=== PATIENT | female | born 1940 | race Two or more races ===

== ENCOUNTER 2016-09-20 15:19 | Emergency (ER) | payer MEDICARE ==
[2016-09-20 16:51] LABS: Albumin 3.4 g/dL (3.4-5.0); Calcium 9.5 mg/dL (8.5-10.1); Magnesium 2.2 mg/dL (1.6-2.6); Potassium 3.9 mmol/L (3.5-5.1)
[2016-09-20 16:54] LABS: Bilirubin, Total 0.6 mg/dL (0.2-1.0); Total Protein 7.2 g/dL (6.4-8.2)
[2016-09-20 18:02] LABS: Basophils # (auto) 0 uL; Basophils % (auto) 0.4 % (0.0-2.0); Eosinophils # (auto) 0.1 uL; Eosinophils % (auto) 1.1 % (0.0-7.0); Hematocrit 40.2 % (36.0-46.0); Hemoglobin 12.8 g/dL (12.2-16.2); Lymphocytes # (auto) 2.1 uL; Lymphocytes % (auto) 40.4 % (10.0-50.0); Mean Corpuscular Hemoglobin 31.5 pg (28.0-32.0); Mean Corpuscular Hgb Conc. 31.8 g/dL (32.0-36.0); Mean Corpuscular Volume 98.9 fL (80.0-100.0); Mean Platelet Volume 8.9 fL (7.4-10.4); Monocytes # (auto) 0.4 uL; Neutrophils # (auto) 2.6 uL; Neutrophils % (auto) 50.1 % (37.0-80.0); Platelet Count (auto) 262 10^3/uL (140-450); Red Cell Distribution Width 15.6 % (11.6-16.0); White Blood Cell 5.2 10^3/uL (4.4-10.8)
[2016-09-20] MEDS: LORazepam 2MG/ML-1ML VIAL IV ONE (18:02)
[2016-09-20] MEDS: cloNIDine HCL 0.1 MG TAB PO ONE (18:02)
[2016-09-20 18:39] LABS: Urine Bilirubin Negative (Negative); Urine Blood Negative /uL (Negative); Urine Color Yellow (Yellow); Urine Glucose Normal (Normal); Urine Ketone Negative (Negative); Urine Mucus FEW (None Seen); Urine Nitrite Negative (Negative); Urine RBC 1 /hpf (0 - 4); Urine Squamous Epithelial Cell FEW /hpf (<5); Urine Urobilinogen Normal (Negative); Urine pH 5.5 (5.0-8.0)
[2016-09-20 19:54] VITALS: BP 129/64
== END 2016-09-20 20:24 | disposition home or self-care (01) ==
LOC: ER 15:25
DX: R07.89 Other chest pain (principal); I10 Essential (primary) hypertension; E78.5 Hyperlipidemia, unspecified; Z88.0 Allergy status to penicillin; Z88.6 Allergy status to analgesic agent; Z88.8 Allergy status to other drugs, medicaments and biological substances
CPT/HCPCS: 36415; 71020; 80053; 81001; 83735; 84484; 85025; 93005; 94761; 96374; 99285; J2060

== ENCOUNTER 2017-02-14 12:56 | Inpatient (IN) | payer MEDICARE, OTHER ==
[~2017-02-14] VITALS: Ht 157.5 cm; Wt 68.3 kg
[2017-02-14 14:24] LABS: Basophils # (auto) 0 uL; Basophils % (auto) 0.3 % (0.0-2.0); CONDITION Y; Eosinophils # (auto) 0.1 uL; Eosinophils % (auto) 1.4 % (0.0-7.0); Hematocrit 40.8 % (36.0-46.0); Hemoglobin 13.8 g/dL (12.2-16.2); Lymphocytes # (auto) 1.8 uL; Lymphocytes % (auto) 32.2 % (10.0-50.0); Mean Corpuscular Hemoglobin 32.6 pg (28.0-32.0); Mean Corpuscular Hgb Conc. 33.8 g/dL (32.0-36.0); Mean Corpuscular Volume 96.4 fL (80.0-100.0); Mean Platelet Volume 8.3 fL (7.4-10.4); Monocytes # (auto) 0.5 uL; Monocytes % (auto) 8.9 % (0.0-12.0); Neutrophils # (auto) 3.2 uL; Neutrophils % (auto) 57.2 % (37.0-80.0); Platelet Count (auto) 261 10^3/uL (140-450); Red Cell Distribution Width 16.2 % (11.6-16.0); White Blood Cell 5.6 10^3/uL (4.4-10.8)
[2017-02-14 14:34] LABS: INR 0.98 (0.9-1.15); Partial Thromboplastin Time 27.9 sec (22.64-33.71); Prothrombin Time 10.7 sec (9.37-12.3)
[2017-02-14 14:41] LABS: Albumin 3.6 g/dL (3.4-5.0); Alkaline Phosphatase 122 U/L (45-117); Anion Gap 7 (5-15); Aspartate Aminotransferase 19 U/L (15-37); BUN/Creatinine Ratio 25.8; Bilirubin, Total 1.1 mg/dL (0.2-1.0); Blood Urea Nitrogen 17 mg/dL (7-18); Calcium 9.3 mg/dL (8.5-10.1); Carbon Dioxide 27 mmol/L (21-32); Chloride 106 mmol/L (98-107); GFR African American 113 mL/min; GFR Non-African American 93 mL/min; Glucose 95 mg/dL (74-106); Potassium 3.7 mmol/L (3.5-5.1); Sodium 140 mmol/L (136-145); Total Protein 7.8 g/dL (6.4-8.2)
[2017-02-15 00:55] LABS: Amylase 102 U/L (25-115)
[2017-02-15 01:10] LABS: Temperature: 22.7 C (20.0-25.0)
[2017-02-15] MEDS ORDERED: ONDANSETRON HCL 4 MG/2 ML VIAL IV ONE (02:00)
[2017-02-15] MEDS ORDERED: LACTULOSE 20Gm/30ML SOLN PO ONE (02:00)
[2017-02-15] MEDS ORDERED: MORPHINE SULF INJ 2 MG/ML SYRINGE 1ML IV ONE (02:00)
[2017-02-15 02:34] LABS: Urine RBC None Seen /hpf (0 - 4); Urine Squamous Epithelial Cell None Seen /hpf (<5)
[2017-02-15 04:14] LABS: Urine Bilirubin Negative (Negative); Urine Blood Negative /uL (Negative); Urine Color Yellow (Yellow); Urine Glucose Normal (Normal); Urine Ketone Negative (Negative); Urine Urobilinogen Normal (Negative); Urine pH 5.5 (5.0-8.0)
[2017-02-15 04:15] LABS: Urine Nitrite Negative (Negative)
[2017-02-15] MEDS ORDERED: PANTOPRAZOLE SODIUM 40 MG/10 ML VIAL IV ONE (05:15)
[2017-02-15] MEDS ORDERED: ONDANSETRON HCL 4 MG/2 ML VIAL IV PRN (05:15)
[2017-02-15] MEDS ORDERED: TEMAZEPAM 15 MG CAP PO PRN (05:15)
[2017-02-15] MEDS ORDERED: MORPHINE SULF INJ 2 MG/ML SYRINGE 1ML IV PRN (05:15)
[2017-02-15] MEDS: hydrALAZINE HCL 25 MG TAB PO SCH ×3 (05:48→22:38)
[2017-02-15] MEDS: metroNIDAZOLE 500MG/100ML 100 ML IV SCH ×3 (05:48→22:37)
[2017-02-15] MEDS ORDERED: PANTOPRAZOLE SODIUM 40 MG/10 ML VIAL IV SCH (10:00)
[2017-02-15] MEDS: ENOXAPARIN SOD 40 MG/0.4 ML SYRINGE SC SCH (10:22)
[2017-02-15] MEDS: DOCUSATE SOD 100 MG CAP PO SCH ×2 (10:42→22:40)
[2017-02-15] MEDS: LOSARTAN POTASSIUM 50 MG TAB PO SCH (10:42)
[2017-02-15] MEDS: LEVOFLOXACIN 500MG 100 ML IV SCH (10:42)
[2017-02-15 20:00] VITALS: BP 137/73
[2017-02-15 22:00] VITALS: BP 137/73
[2017-02-15] MEDS ORDERED: ATORVASTATIN 20 MG TAB PO SCH (22:00)
[2017-02-15] MEDS: PANTOPRAZOLE 40 MG TAB PO SCH (22:37)
[2017-02-16 05:00] VITALS: BP 122/55
[2017-02-16] MEDS: metroNIDAZOLE 500MG/100ML 100 ML IV SCH ×2 (06:00→15:15)
[2017-02-16 07:37] LABS: Basophils # (auto) 0 uL; Basophils % (auto) 0.4 % (0.0-2.0); CONDITION Y; Eosinophils # (auto) 0.1 uL; Eosinophils % (auto) 1.5 % (0.0-7.0); Hematocrit 36.1 % (36.0-46.0); Hemoglobin 12.1 g/dL (12.2-16.2); Lymphocytes # (auto) 1.6 uL; Lymphocytes % (auto) 31.6 % (10.0-50.0); Mean Corpuscular Hemoglobin 32.4 pg (28.0-32.0); Mean Corpuscular Hgb Conc. 33.5 g/dL (32.0-36.0); Mean Corpuscular Volume 96.7 fL (80.0-100.0); Monocytes # (auto) 0.5 uL; Neutrophils # (auto) 2.9 uL; Neutrophils % (auto) 57.5 % (37.0-80.0); Platelet Count (auto) 234 10^3/uL (140-450); Red Cell Distribution Width 16.1 % (11.6-16.0)
[2017-02-16 07:51] LABS: BUN/Creatinine Ratio 12.9; Calcium 8.8 mg/dL (8.5-10.1); Potassium 3.7 mmol/L (3.5-5.1); Total Protein 6.2 g/dL (6.4-8.2)
[2017-02-16] MEDS ORDERED: SODIUM CHLORIDE LOCK 10 ML ONE (08:06)
[2017-02-16] MEDS ORDERED: diphenhdrAMINE HCL 50 MG/1 ML VL ONE (08:07)
[2017-02-16] MEDS ORDERED: fentaNYL CITRATE 100 MCG/2 ML VL ONE (08:07)
[2017-02-16] MEDS ORDERED: LIDOCAINE VISCOUS 2% 15ML UD ONE (08:07)
[2017-02-16] MEDS ORDERED: MIDAZOLAM HCL 5 MG/ML-1ML VIAL ONE (08:07)
[2017-02-16 09:00] VITALS: BP 134/70
[2017-02-16] MEDS: hydrALAZINE HCL 25 MG TAB PO SCH ×2 (09:25→15:18)
[2017-02-16] MEDS: ENOXAPARIN SOD 40 MG/0.4 ML SYRINGE SC SCH (10:00)
[2017-02-16] MEDS: DOCUSATE SOD 100 MG CAP PO SCH (10:00)
[2017-02-16] MEDS: PANTOPRAZOLE 40 MG TAB PO SCH (10:00)
[2017-02-16] MEDS: LOSARTAN POTASSIUM 50 MG TAB PO SCH (10:00)
[2017-02-16] MEDS: LEVOFLOXACIN 500MG 100 ML IV SCH (10:00)
[2017-02-16 13:00] VITALS: BP 141/76
[2017-02-16] MEDS ORDERED: LEVO500T21 PO (15:39)
[2017-02-16] MEDS ORDERED: PANT40TA2 PO (15:39)
[2017-02-16] MEDS ORDERED: METR500T PO (15:39)
[2017-02-16 16:46] VITALS: BP 141/76
== END 2017-02-16 18:03 | disposition home or self-care (01) | DRG 392 ==
LOC: ER 12:56 → OVERFLOW 12:57 → EAST 02-15 16:46
PROVIDERS: ADMIT Nurse Practitioner; ATTEND Nurse Practitioner Acute Care
PROC: 0DB68ZX Excision of Stomach, Via Natural or Artificial Opening Endoscopic, Diagnostic (ICD-10-PCS; principal; 2017-02-16 10:00)
DX: K57.32 Diverticulitis of large intestine without perforation or abscess without bleeding (principal); N39.0 Urinary tract infection, site not specified; J98.11 Atelectasis; I11.9 Hypertensive heart disease without heart failure; E78.5 Hyperlipidemia, unspecified; K29.70 Gastritis, unspecified, without bleeding; K59.00 Constipation, unspecified; E78.00 Pure hypercholesterolemia, unspecified; Z88.6 Allergy status to analgesic agent; Z88.5 Allergy status to narcotic agent; Z88.0 Allergy status to penicillin; Z90.710 Acquired absence of both cervix and uterus
CPT/HCPCS: 36415; 71010; 74176; 80053; 81001; 82150; 83690; 83880; 84443; 84484; 85025; 85610; 85730; 93005; 94761; 96374; 96375; C9113; J1956; J2250; J2405; J3490

== ENCOUNTER 2017-12-29 18:59 | Inpatient (IN) | payer MEDICARE, OTHER ==
[~2017-12-29] VITALS: Ht 152.4 cm; Wt 81.5 kg
[~2017-12-29 18:59] MED LIST: LEVO500T21 PO; METR500T PO; PANT40TA2 PO
[2017-12-29] MEDS ORDERED: SODIUM CHLORIDE 0.9% 1,000 ML IV ONE (19:19)
[2017-12-29 19:42] LABS: Basophils # (auto) 0 uL; Basophils % (auto) 0.2 % (0.0-2.0); Eosinophils # (auto) 0.1 uL; Eosinophils % (auto) 0.9 % (0.0-7.0); Hematocrit 43.7 % (36.0-46.0); Hemoglobin 14.8 g/dL (12.2-16.2); Lymphocytes # (auto) 1.9 uL; Lymphocytes % (auto) 24.7 % (10.0-50.0); Mean Corpuscular Hemoglobin 33.3 pg (28.0-32.0); Mean Corpuscular Hgb Conc. 33.8 g/dL (32.0-36.0); Mean Corpuscular Volume 98.4 fL (80.0-100.0); Monocytes # (auto) 0.6 uL; Monocytes % (auto) 7.8 % (0.0-12.0); Neutrophils # (auto) 5.2 uL; Neutrophils % (auto) 66.4 % (37.0-80.0); Nucleated Red Blood Cells % 0.1 %; Platelet Count (auto) 245 10^3/uL (140-450); Red Blood Cells 4.44 10^6/uL (4.0-5.20); Red Cell Distribution Width 15.1 % (11.8-14.3); White Blood Cell 7.8 10^3/uL (4.4-10.8)
[2017-12-29 19:45] LABS: Urine Bacteria NONE SEEN /hpf (None Seen); Urine Blood Negative /uL (Negative); Urine Specific Gravity 1.005 (1.001-1.035); Urine WBC 10 /hpf (0 - 5)
[2017-12-29 20:07] LABS: INR 0.96 (0.9-1.15); Partial Thromboplastin Time 28.8 sec (23.78-33.04); Prothrombin Time 10.3 sec (9.27-12.13)
[2017-12-29 20:08] LABS: Alanine Aminotransferase 23 U/L (13-56); Albumin 3.7 g/dL (3.4-5.0); Anion Gap 10 (5-15); Aspartate Aminotransferase 19 U/L (15-37); BUN/Creatinine Ratio 18.6; Blood Urea Nitrogen 13 mg/dL (7-18); Calcium 9.1 mg/dL (8.5-10.1); Carbon Dioxide 22 mmol/L (21-32); Chloride 108 mmol/L (98-107); GFR African American 105 mL/min; GFR Non-African American 87 mL/min; Glucose 114 mg/dL (74-106); Potassium 3.8 mmol/L (3.5-5.1); Sodium 140 mmol/L (136-145)
[2017-12-29 20:12] LABS: Alkaline Phosphatase 113 U/L (45-117); Bilirubin, Total 0.7 mg/dL (0.2-1.0); Total Protein 8.4 g/dL (6.4-8.2)
[2017-12-30] VITALS (7 sets, daily range): BP systolic 118–141; BP diastolic 60–71
[2017-12-30] MEDS ORDERED: TEMAZEPAM 15 MG CAP PO PRN (03:00)
[2017-12-30] MEDS ORDERED: NITROGLYCERIN 0.4 MG SL TAB SL PRN (03:00)
[2017-12-30] MEDS ORDERED: ONDANSETRON HCL 4 MG/2 ML VIAL IV PRN (03:00)
[2017-12-30] MEDS ORDERED: IBUPROFEN 600 MG TAB PO PRN (03:00)
[2017-12-30] MEDS ORDERED: traMADol HCL 50 MG TAB PO PRN (03:00)
[2017-12-30] MEDS ORDERED: MORPHINE SULFATE 8mg/ml INJ SDV IV PRN ×2 (03:00)
[2017-12-30 03:22] LABS: Cholesterol 194 mg/dL (< 200); HDL Cholesterol 66 mg/dL (40-59); LDL Cholesterol 128 mg/dL (< 100); Triglycerides 74 mg/dL (< 150)
[2017-12-30] MEDS: LEVOTHYROXINE SODIUM 50 MCG TAB PO SCH (06:57)
[2017-12-30 08:11] LABS: Basophils # (auto) 0 uL; Basophils % (auto) 0.6 % (0.0-2.0); Eosinophils # (auto) 0.1 uL; Eosinophils % (auto) 1.4 % (0.0-7.0); Hematocrit 37.2 % (36.0-46.0); Hemoglobin 12.7 g/dL (12.2-16.2); Lymphocytes # (auto) 1.4 uL; Lymphocytes % (auto) 33.4 % (10.0-50.0); Mean Corpuscular Hemoglobin 33.6 pg (28.0-32.0); Mean Corpuscular Hgb Conc. 34.2 g/dL (32.0-36.0); Mean Corpuscular Volume 98.4 fL (80.0-100.0); Monocytes # (auto) 0.4 uL; Monocytes % (auto) 10.5 % (0.0-12.0); Neutrophils # (auto) 2.2 uL; Neutrophils % (auto) 54.1 % (37.0-80.0); Nucleated Red Blood Cells % 0.1 %; Platelet Count (auto) 209 10^3/uL (140-450); Red Blood Cells 3.78 10^6/uL (4.0-5.20); Red Cell Distribution Width 15.1 % (11.8-14.3); White Blood Cell 4.1 10^3/uL (4.4-10.8)
[2017-12-30 08:27] LABS: Calcium 8.4 mg/dL (8.5-10.1); Potassium 3.6 mmol/L (3.5-5.1)
[2017-12-30] MEDS ORDERED: hydrALAZINE HCL 25 MG TAB PO SCH (10:00)
[2017-12-30] MEDS: LOSARTAN POTASSIUM 50 MG TAB PO SCH ×2 (10:00→10:09)
[2017-12-30] MEDS: ASPirin-EC 81 mg tab PO SCH (10:09)
[2017-12-30] MEDS ORDERED: ENOXAPARIN SOD 40 MG/0.4 ML SYRINGE SC ONE (17:17)
[2017-12-30] MEDS ORDERED: ATOR20TA PO (17:33)
[2017-12-30] MEDS ORDERED: HYDR25TA35 PO (17:33)
[2017-12-30] MEDS ORDERED: LOSA100T27 PO (17:33)
[2017-12-30] MEDS ORDERED: LEVO50TA7 PO (17:34)
[2017-12-30] MEDS: ATORVASTATIN 20 MG TAB PO SCH (21:52)
[2017-12-30] MEDS: METOPROLOL TARTRATE 25 MG TAB PO SCH (21:53)
[2017-12-31] MEDS ORDERED: GLUCAGON HYDROCHLORIDE (RDNA) 1 MG VIAL IV ONE (03:15)
[2017-12-31] MEDS ORDERED: GLUCAGON HYDROCHLORIDE (RDNA) 1 MG VIAL ONE (03:33)
[2017-12-31 05:00] VITALS: BP 130/76
[2017-12-31] MEDS: LEVOTHYROXINE SODIUM 50 MCG TAB PO SCH (07:00)
[2017-12-31 08:39] VITALS: BP 111/52
[2017-12-31] MEDS: ASPirin-EC 81 mg tab PO SCH (09:30)
[2017-12-31] MEDS: METOPROLOL TARTRATE 25 MG TAB PO SCH (09:30)
[2017-12-31] MEDS: ENOXAPARIN SOD 40 MG/0.4 ML SYRINGE SC SCH (09:30)
[2017-12-31] MEDS: LOSARTAN POTASSIUM 50 MG TAB PO SCH ×2 (09:31→17:34)
[2017-12-31 10:40] VITALS: BP 143/70
[2017-12-31 13:34] VITALS: BP 126/54
[2017-12-31 17:30] VITALS: BP 170/74
[2017-12-31] MEDS: ATORVASTATIN 20 MG TAB PO SCH (21:22)
[2017-12-31 21:48] VITALS: BP 143/73
[2018-01-01 04:36] VITALS: BP 107/72
[2018-01-01] MEDS: LEVOTHYROXINE SODIUM 50 MCG TAB PO SCH (06:21)
[2018-01-01] MEDS: ENOXAPARIN SOD 40 MG/0.4 ML SYRINGE SC SCH (09:19)
[2018-01-01] MEDS: ASPirin-EC 81 mg tab PO SCH (09:20)
[2018-01-01] MEDS: LOSARTAN POTASSIUM 50 MG TAB PO SCH (09:22)
[2018-01-01 09:31] VITALS: BP 150/75
[2018-01-01 12:10] VITALS: BP 142/74
[2018-01-01 13:00] VITALS: BP 165/62
== END 2018-01-01 14:55 | disposition home or self-care (01) | DRG 206 ==
LOC: ER 19:00 → TELE 19:01 → TELE-WESTW 12-30 05:41
PROVIDERS: ADMIT Nurse Practitioner Family; ATTEND Nurse Practitioner Family
DX: M94.0 Chondrocostal junction syndrome [Tietze] (principal); D64.9 Anemia, unspecified; I11.9 Hypertensive heart disease without heart failure; E66.01 Morbid (severe) obesity due to excess calories; N39.0 Urinary tract infection, site not specified; E03.9 Hypothyroidism, unspecified; E78.00 Pure hypercholesterolemia, unspecified; R00.1 Bradycardia, unspecified; T44.7X5A Adverse effect of beta-adrenoreceptor antagonists, initial encounter; Y92.89 Other specified places as the place of occurrence of the external cause; Z90.710 Acquired absence of both cervix and uterus; Z79.899 Other long term (current) drug therapy; Z79.82 Long term (current) use of aspirin; Z88.5 Allergy status to narcotic agent; Z88.8 Allergy status to other drugs, medicaments and biological substances; Z88.0 Allergy status to penicillin; Z68.35 Body mass index [BMI] 35.0-35.9, adult
CPT/HCPCS: 36415; 71046; 80048; 80053; 80061; 81001; 83735; 83880; 84443; 84484; 85025; 85379; 85610; 85730; 93005; 93306; 94761; 96361; 96372; 96374; 96375; J2270; J2405

== ENCOUNTER → 2019-01-25 | Outpatient (CLI) | payer OTHER, MEDICAID ==
[~2019-01-25] MED LIST changes: +ATOR20TA PO; +CHOL100029 PO; +HYDR-4296 PO; +HYDR50TA15 PO; -LEVO500T21 PO; +LEVO50TA7 PO; +LOSA-49 PO; -METR500T PO; +PANT40T PO
[2019-01-25 10:30] VITALS: BP 172/74
[2019-01-25 10:55] VITALS: BP 165/69
--- NOTE | 2019-01-25 10:55 | NUR ---
Pre-Op Discharge Summary: See e-MAR for any medications given for this visit. Pre-op orders received and carried out per MD of EKG, LABS and chest xrays. Patient given a copy of EKG with instructions to go to [facility] out patient for further follow up care.
[2019-01-25 12:08] LABS: Basophils # (auto) 0 uL; Basophils % (auto) 0.4 % (0.0-2.0); Eosinophils # (auto) 0.1 uL; Eosinophils % (auto) 1.2 % (0.0-7.0); Hematocrit 41.8 % (36.0-46.0); Hemoglobin 13.9 g/dL (12.2-16.2); Lymphocytes # (auto) 1.6 uL; Lymphocytes % (auto) 34.8 % (10.0-50.0); Mean Corpuscular Hemoglobin 32.5 pg (28.0-32.0); Mean Corpuscular Hgb Conc. 33.4 g/dL (32.0-36.0); Mean Corpuscular Volume 97.5 fL (80.0-100.0); Monocytes # (auto) 0.4 uL; Monocytes % (auto) 8.4 % (0.0-12.0); Neutrophils # (auto) 2.6 uL; Neutrophils % (auto) 55.2 % (37.0-80.0); Nucleated Red Blood Cells % 0.1 %; Platelet Count (auto) 218 10^3/uL (140-450); Red Blood Cells 4.29 10^6/uL (4.0-5.20); White Blood Cell 4.7 10^3/uL (4.4-10.8)
[2019-01-25 12:18] LABS: BUN/Creatinine Ratio 20.6; Calcium 9.4 mg/dL (8.5-10.1); INR 0.96 (0.9-1.15); Partial Thromboplastin Time 26.7 sec (23.64-32.05); Potassium 3.5 mmol/L (3.5-5.1)
== END | disposition home or self-care (01) ==
LOC: Rad HDHVI 09:53
PROVIDERS: ATTEND Internal Medicine
DX: Z01.818 Encounter for other preprocedural examination (principal); R07.89 Other chest pain; I70.0 Atherosclerosis of aorta; I11.9 Hypertensive heart disease without heart failure
CPT/HCPCS: 36415; 71046; 80048; 85025; 85610; 85730; 93005; G0463

== ENCOUNTER 2019-01-30 08:47 | Day surgery (SDC) | payer OTHER, MEDICAID ==
[~2019-01-30] VITALS: Ht 152.4 cm; Wt 59.0 kg
[~2019-01-30 08:47] MED LIST changes: -HYDR-4296 PO; -LOSA-49 PO; -PANT40TA2 PO
[2019-01-30] MEDS ORDERED: ANGIOMAX 250 MG VIAL IV ONE (09:18)
[2019-01-30] MEDS ORDERED: LIDOCAINE 2%HCL (LOCAL ANESTH.) INJ 20ML MDV ONE (09:18)
[2019-01-30] MEDS ORDERED: MIDAZOLAM HCL 1MG/1ML-2 ML VIAL ONE (09:18)
[2019-01-30] MEDS ORDERED: fentaNYL CITRATE 100 MCG/2 ML VL ONE (09:18)
[2019-01-30] MEDS ORDERED: IOHEXOL 350 MG/ML 100ML IJ ONE ×3 (09:19→10:53)
[2019-01-30] MEDS ORDERED: SODIUM CHL 0.9% 0 ML ONE (09:19)
[2019-01-30] MEDS ORDERED: HYDROcodone-ACET 5/325MG TAB PO PRN (11:45)
[2019-01-30] MEDS ORDERED: ONDANSETRON HCL 4 MG/2 ML VIAL IV PRN (11:45)
[2019-01-30] MEDS ORDERED: ACETAMINOPHEN 500 MG TAB PO PRN (11:45)
== END 2019-01-30 13:55 | disposition home or self-care (01) ==
LOC: CATH 08:47
PROVIDERS: ATTEND Internal Medicine
DX: R07.9 Chest pain, unspecified (principal); I10 Essential (primary) hypertension; E78.5 Hyperlipidemia, unspecified; I73.9 Peripheral vascular disease, unspecified; E78.00 Pure hypercholesterolemia, unspecified; Z79.899 Other long term (current) drug therapy; Z95.818 Presence of other cardiac implants and grafts; Z88.0 Allergy status to penicillin; Z88.5 Allergy status to narcotic agent
CPT/HCPCS: 93458; C1760; C1894; J1644; J2250; J3010; J7030; Q9967; 99152

== ENCOUNTER → 2021-03-03 | Outpatient (CLI) | payer OTHER, MEDICAID ==
[~2021-03-03] MED LIST changes: +LISI20TA28 PO; +OMEP20TA PO
== END | disposition home or self-care (01) ==
LOC: Rad HDHVI 08:43
PROVIDERS: ATTEND Internal Medicine
DX: I08.8 Other rheumatic multiple valve diseases (principal); I25.10 Atherosclerotic heart disease of native coronary artery without angina pectoris; I11.9 Hypertensive heart disease without heart failure
CPT/HCPCS: 93306